=== PATIENT | female | born 1995 | race Caucasian/White ===

== ENCOUNTER 2020-11-23 16:32 | Outpatient (CLI) | payer OTHER ==
[~2020-11-23 16:32] MED LIST: PRENATAL VITAM1 EAC3 PO
== END 2020-11-23 21:57 | disposition home or self-care (01) ==
LOC: GENOP 16:32
DX: O99.891 Other specified diseases and conditions complicating pregnancy (principal); R10.9 Unspecified abdominal pain; M54.9 Dorsalgia, unspecified; Z3A.30 30 weeks gestation of pregnancy
CPT/HCPCS: 81001; 82731; 96360; 96367; G0463; J0696; J7030

== ENCOUNTER 2020-11-24 20:33 | Outpatient (CLI) | payer OTHER ==
[2020-11-24 22:42] LABS: HEMOGLOBIN 11.9 gm/dl (12.3-15.3); RED BLOOD COUNT 3.92 M/UL (4.00-5.10); WHITE BLOOD COUNT 9.4 K/UL (4.5-11.0)
[2020-11-24 23:02] LABS: BUN/CREATININE RATIO 13 (0-10)
== END 2020-11-25 02:24 | disposition home or self-care (01) ==
LOC: GENOP 20:33
PROVIDERS: Obstetrics & Gynecology
DX: O99.891 Other specified diseases and conditions complicating pregnancy (principal); R10.9 Unspecified abdominal pain; M54.9 Dorsalgia, unspecified; Z3A.30 30 weeks gestation of pregnancy; Z20.828 Contact with and (suspected) exposure to other viral communicable diseases
CPT/HCPCS: 36415; 59025; 80053; 81001; 82009; 82150; 83690; 85025; 96360; 96361; 96374; 96375; J2550; U0002

== ENCOUNTER 2020-12-19 23:30 | Outpatient (CLI) | payer OTHER | END 2020-12-20 00:53 | disposition home or self-care (01) | LOC: GENOP 23:30 | DX: O62.9 Abnormality of forces of labor, unspecified (principal); O99.891 Other specified diseases and conditions complicating pregnancy; M54.9 Dorsalgia, unspecified; Z3A.34 34 weeks gestation of pregnancy | CPT/HCPCS: G0463 ==

== ENCOUNTER 2020-12-31 20:37 | Outpatient (CLI) | payer OTHER | END 2020-12-31 23:26 | disposition home or self-care (01) | LOC: GENOP 20:37 | DX: O42.913 Preterm premature rupture of membranes, unspecified as to length of time between rupture and onset of labor, third trimester (principal); O62.9 Abnormality of forces of labor, unspecified; Z3A.35 35 weeks gestation of pregnancy | CPT/HCPCS: 59025; 81001; 83518; 96360; 96372; J3105; J7120 ==

== ENCOUNTER 2021-01-05 16:25 | Outpatient (CLI) | payer OTHER | END 2021-01-05 18:53 | disposition home or self-care (01) | LOC: GENOP 16:25 | DX: O62.9 Abnormality of forces of labor, unspecified (principal); O99.283 Endocrine, nutritional and metabolic diseases complicating pregnancy, third trimester; E86.9 Volume depletion, unspecified; O26.893 Other specified pregnancy related conditions, third trimester; R10.2 Pelvic and perineal pain; R10.9 Unspecified abdominal pain; O26.853 Spotting complicating pregnancy, third trimester; O21.9 Vomiting of pregnancy, unspecified; O99.333 Smoking (tobacco) complicating pregnancy, third trimester; F17.210 Nicotine dependence, cigarettes, uncomplicated; Z3A.36 36 weeks gestation of pregnancy | CPT/HCPCS: 81001; 83518; G0463 ==

== ENCOUNTER 2021-01-25 12:57 | Inpatient (IN) | payer OTHER ==
[~2021-01-25] VITALS: Ht 157.5 cm; Wt 62.6 kg
[2021-01-25 16:36] LABS: RED BLOOD COUNT 4.07 M/UL (4.00-5.10); WHITE BLOOD COUNT 11.5 K/UL (4.5-11.0)
[2021-01-26] MEDS ORDERED: DOCUSATE SODIU250 MG PO (06:08)
[2021-01-26] MEDS ORDERED: TUMS DUAL ACTI1 EACH PO (06:09)
[2021-01-26 06:42] LABS: HEMOGLOBIN 10.9 gm/dl (12.3-15.3)
[2021-01-27] MEDS ORDERED: IBUPROFEN600 MG PO (10:10)
[2021-01-27] MEDS ORDERED: DOCUSATE SODIU250 MG PO (10:10)
== END 2021-01-27 15:42 | disposition home or self-care (01) | DRG 807 ==
LOC: GENOP 12:57 → OB 16:20
PROVIDERS: ADMIT Obstetrics & Gynecology
PROC: 10E0XZZ Delivery of Products of Conception, External Approach (ICD-10-PCS; principal; 2021-01-25)
PROC: 10907ZC Drainage of Amniotic Fluid, Therapeutic from Products of Conception, Via Natural or Artificial Opening (ICD-10-PCS; 2021-01-25)
PROC: 3E0234Z Introduction of Serum, Toxoid and Vaccine into Muscle, Percutaneous Approach (ICD-10-PCS; 2021-01-26)
DX: O76 Abnormality in fetal heart rate and rhythm complicating labor and delivery (principal); Z37.0 Single live birth; Z3A.39 39 weeks gestation of pregnancy; O99.334 Smoking (tobacco) complicating childbirth; F17.210 Nicotine dependence, cigarettes, uncomplicated; Z20.822 Contact with and (suspected) exposure to COVID-19; Z23 Encounter for immunization
CPT/HCPCS: 36415; 51702; 81001; 82800; 85014; 85018; 85025; 87635; 90715; J0595; J2001; J2590; J2795; U0003

== ENCOUNTER 2021-11-29 15:10 | Emergency (ER) | payer OTHER ==
[~2021-11-29 15:10] MED LIST changes: +DOCUSATE SODIU250 MG PO; +IBUPROFEN600 MG PO; +TUMS DUAL ACTI1 EACH PO
[2021-11-29] MEDS ORDERED: ZOFRAN ODT 4 MG4 MG SL (19:31)
== END 2021-11-29 19:50 | disposition home or self-care (01) ==
LOC: ER1 15:10
DX: R11.2 Nausea with vomiting, unspecified (principal); R51.9 Headache, unspecified; K21.9 Gastro-esophageal reflux disease without esophagitis; J45.909 Unspecified asthma, uncomplicated; Z20.822 Contact with and (suspected) exposure to COVID-19
CPT/HCPCS: 0241U; 96374; 96375; 99284; J1100; J1200; J1885; J2765

== ENCOUNTER 2021-12-14 06:14 | Emergency (ER) | payer OTHER ==
[~2021-12-14 06:14] MED LIST changes: +ZOFRAN ODT 4 MG4 MG SL
[2021-12-14 06:56] LABS: RED BLOOD COUNT 5.08 M/UL (4.00-5.10)
[2021-12-14 07:13] LABS: BUN/CREATININE RATIO 15 (0-10)
[2021-12-14] MEDS ORDERED: ONDANSETRON ODT4 MG SL (10:09)
[2021-12-14] MEDS ORDERED: PYRIDIUM200 MG PO (10:09)
[2021-12-14] MEDS ORDERED: CEFUROXIME500 MG PO (10:09)
[2021-12-14] MEDS ORDERED: TORADOL 10 MG T10 MG PO (10:09)
== END 2021-12-14 10:18 | disposition home or self-care (01) ==
LOC: ER1 06:14
PROVIDERS: Physician Assistant
DX: N39.0 Urinary tract infection, site not specified (principal); R10.32 Left lower quadrant pain; R79.1 Abnormal coagulation profile
CPT/HCPCS: 80053; 81001; 82962; 83690; 84703; 85025; 85379; 87086; 96374; 96375; 99284; J1885; J2405

== ENCOUNTER 2022-07-01 08:32 | Emergency (ER) | payer OTHER ==
[~2022-07-01 08:32] MED LIST changes: +CEFUROXIME500 MG PO; +ONDANSETRON ODT4 MG SL; +PYRIDIUM200 MG PO; +TORADOL 10 MG T10 MG PO
[2022-07-01 10:06] LABS: RED BLOOD COUNT 4.42 M/UL (4.00-5.10); WHITE BLOOD COUNT 8.3 K/UL (4.5-11.0)
[2022-07-01 10:28] LABS: BUN/CREATININE RATIO 18 (0-10)
[2022-07-01] MEDS ORDERED: ZOFRAN 4 MG TAB4 MG PO (11:07)
== END 2022-07-01 11:15 | disposition home or self-care (01) ==
LOC: ER1 08:32
PROVIDERS: Physician Assistant Medical
DX: R10.84 Generalized abdominal pain (principal); R11.0 Nausea; R10.814 Left lower quadrant abdominal tenderness; Z88.5 Allergy status to narcotic agent; Z20.822 Contact with and (suspected) exposure to COVID-19
CPT/HCPCS: 80053; 81001; 83690; 84703; 85025; 96374; 96375; 99284; C9113; J2405; U0002